=== PATIENT | male | born 1980 | race Caucasian/White ===

== ENCOUNTER 2018-08-19 12:30 | Emergency (ER) | payer MEDICAID ==
[~2018-08-19] VITALS: Ht 160 cm; Wt 63.5 kg
[2018-08-19 12:43] VITALS: BP_SYST 157
[2018-08-19] MEDS: MORPHINE 4 MG/ML INJ. SYRINGE IM ONE (16:33)
[2018-08-19 16:35] LABS: CALCIUM 8.9 mg/dL (8.4-11.0); CREATININE 0.78 mg/dL (0.55-1.30); POTASSIUM 4.3 mmol/L (3.5-5.1)
[2018-08-19 16:41] LABS: ALBUMIN 3.6 g/dL (3.4-4.8); TOTAL BILIRUBIN 0.6 mg/dL (0.0-1.0)
[2018-08-19 17:05] LABS: HEMATOCRIT 46.9 % (36-54); HEMOGLOBIN 16.2 g/dL (14.0-18.0); MEAN CORPUSCULAR HEMOGLOBIN 31 pg (27-31); MEAN CORPUSCULAR HGB CONC 35 % (32-36); MEAN CORPUSCULAR VOLUME 90 fL (79.0-98.0); PLATELET COUNT (AUTO) 237 K/uL (130-430); RED BLOOD CELL COUNT(AUTO) 5.21 MIL/uL (4.2-6.2); RED CELL DISTRIBUTION WIDTH 12.4 % (9.0-15.0); WHITE BLOOD COUNT (AUTO) 15.1 K/uL (4.8-10.8)
[2018-08-19 17:39] LABS: BAND % (MANUAL) 6 % (0-6); BASOPHILS % (MANUAL) 0 % (0-2); EOSINOPHILS % (MANUAL) 0 % (0-7); LYMPHOCYTES % (MANUAL) 10 % (20-46); MONOCYTES % (MANUAL) 3 % (0-11)
[2018-08-19] MEDS ORDERED: AMPICILLIN SODIUM/SULBACTAM NA 3 GM in NS 100 ML IV ONE (19:15)
[2018-08-19 19:50] VITALS: BP_SYST 137
== END 2018-08-19 19:50 | disposition home or self-care (01) ==
LOC: SED 12:30
DX: K80.20 Calculus of gallbladder without cholecystitis without obstruction (principal); R03.0 Elevated blood-pressure reading, without diagnosis of hypertension; Z85.830 Personal history of malignant neoplasm of bone
CPT/HCPCS: 36415; 71045; 74176; 80053; 83690; 85007; 85027; 96372; 99284; J2270

== ENCOUNTER 2018-09-02 21:20 | Inpatient (IN) | payer MEDICAID ==
[~2018-09-02] VITALS: Ht 160 cm; Wt 71.1 kg
[2018-09-02 21:25] VITALS: BP_SYST 159
--- NOTE | 2018-09-02 21:30 | NUR ---
Patient triaged and placed in waiting room. VSS and patient appears in no acute distress at this time. Accompanied by self , awaiting available bed, and MD notified of need for MSE.
[2018-09-02 23:34] LABS: HEMOGLOBIN 17.4 g/dL (14.0-18.0); MEAN CORPUSCULAR HEMOGLOBIN 31 pg (27-31); MEAN CORPUSCULAR HGB CONC 33 % (32-36); MEAN CORPUSCULAR VOLUME 93 fL (79.0-98.0); PLATELET COUNT (AUTO) 326 K/uL (130-430); RED BLOOD CELL COUNT(AUTO) 5.59 MIL/uL (4.2-6.2); RED CELL DISTRIBUTION WIDTH 12.2 % (9.0-15.0); WHITE BLOOD COUNT (AUTO) 15.7 K/uL (4.8-10.8)
[2018-09-02 23:40] LABS: BASOPHILS # (AUTO) 0.3 K/uL (0.0-0.2); BASOPHILS % (AUTO) 2.1 % (0.0-2.0); EOSINOPHILS % (AUTO) 0.3 % (0.0-4.0); LYMPHOCYTES # (AUTO) 1.3 K/uL (1.0-5.5); LYMPHOCYTES % (AUTO) 8.6 % (20.5-51.5); MONOCYTES # (AUTO) 0.5 K/uL (0.0-1.0); MONOCYTES % (AUTO) 3.2 % (1.7-9.3); NEUTROPHILS # (AUTO) 13.4 K/uL (1.8-7.7); NEUTROPHILS % (AUTO) 85.8 % (40.0-70.0)
[2018-09-02 23:51] LABS: CALCIUM 9.3 mg/dL (8.4-11.0); CREATININE 1.06 mg/dL (0.55-1.30); POTASSIUM 4.1 mmol/L (3.5-5.1); TOTAL BILIRUBIN 0.5 mg/dL (0.0-1.0)
[2018-09-02 23:56] LABS: INR 0.9 (0.80-1.20); PROTHROMBIN TIME 9.5 SECS (9.5-12.5)
--- NOTE | 2018-09-03 00:32 | NUR ---
Pt ambulatory to bed 4 for evaluation
--- NOTE | 2018-09-03 00:37 | NUR ---
Pt C/O abdominal pain x 2 weeks. Pt states he was in the ER for the complaints and was instructed to follow up with gall stone removal with PMD. Pt states PMD is on vaction and instructed if pain persists to go back to the ER. Pt states pain is located in the epigastric area and radiates to the left side. Pt states he vomited x 1 at 2000 last night but no nausea at this time. Pt's vital signs are stable, will continue to monitor.
--- NOTE | 2018-09-03 00:45 | NUR ---
ER Dr. Joshi at bedside examining patient.
[2018-09-03] MEDS ORDERED: ONDANSETRON HCL 4 MG/2 ML VIAL IVP ONE ×2 (01:30→18:00)
[2018-09-03] MEDS ORDERED: NACL 0.9% 1,000 ML IV ONE (01:30)
[2018-09-03] MEDS ORDERED: MORPHINE 4 MG/ML INJ. SYRINGE IVP ONE (01:30)
--- NOTE | 2018-09-03 02:08 | NUR ---
Patient transported to radiology via gurney, accompanied by rad staff.
[2018-09-03] MEDS ORDERED: IOHEXOL 100 ML IV ONE (02:19)
--- NOTE | 2018-09-03 03:00 | NUR ---
Pt is sleeping in bed, no acute distress noted at this time. Will continue to monitor
--- NOTE | 2018-09-03 04:16 | NUR ---
Pt is resting in bed, pt states abd pain is 1/10. Vital signs are stable at this time, will continue to monitor
--- NOTE | 2018-09-03 04:33 | NUR ---
Jonas armenta in [facility] - 09/03/18 at [email or web address] Joshi talked to insurance and PET Team will be discharged in the morning.
--- NOTE | 2018-09-03 05:07 | NUR ---
ADMISSION NOTE Received patient from ER via gurney. Patient admitted with diagnosis of Gallstones. Patient is awake, alert, oriented X 4. Patient oriented to hospital room, call light, toileting, pain management and safety-teach back done. Patient informed that ALESSANDRO Millan will be primary nurse and that their room number is 130B. Personal belongings checked and Belongings List documented. Call light within reach.
--- NOTE | 2018-09-03 05:15 | NUR ---
[facility] Ad[facility] surge unit. Will go to room 130B. Belongings list completed. Summary report printed. Report will be given at bedside.
[2018-09-03 05:22] VITALS: BP_SYST 124
[2018-09-03] MEDS ORDERED: D5NS 1,000 ML IV ONE (06:00)
--- NOTE | 2018-09-03 06:05 | NUR ---
CONSULT: CONSULT CALLED FOR DR. SANCHEZ I SPOKE WITH JOEY MORATAYA REASON FOR CONSULT: GALLSTONES REQUESTING CONSULT: DR. APPLE HIV PREVENTION SPECIALIST PHONE NUMBER: [phone] SANCHEZ CALLED ALREADY HE IS TALKING TO RN IN CHARGE OF THIS PT.
--- NOTE | 2018-09-03 06:10 | NUR ---
Spoke with Dr. Finch: Dr. Finch paged by community affairs director Cot[place] for ordered surgical consult. updated with patient's current condition and well as pertinent labs and imaging results. No orders received.
--- NOTE | 2018-09-03 06:35 | NUR ---
Closing note: Patient is awake in bed resting, no acute distress noted. IV fluids infusing well to right forearm IV site. No complaints of pain or nausea. All needs met. Will endorse care to dayshift RN.
--- NOTE | 2018-09-03 07:26 | NUR ---
OPENING NOTE: MORNING REPORT WAS TAKEN FROM ELECTRICAL CALIBRATOR NURSE AT BEDSIDE. PATIENT IS ASLEEP WITH NO SIGNS OF DISTRESS. PATIENT ON ROOM AIR. IV FLUIDS INFUSING. CALL LIGHT IS IN REACH AND BED IN LOWEST POSITION. WILL CONTINUE TO MONITOR.
[2018-09-03 08:23] VITALS: BP_SYST 123
[2018-09-03] MEDS ORDERED: cefTRIAXone 1 GM IVPB PREMIX 50 ML IV SCH (10:00)
--- NOTE | 2018-09-03 10:21 | NUR ---
NOTE: PATIENT LAYING IN BED WITH NO COMPLAINTS OF DISTRESS. GAVE PATIENT SCHEDULED ANTIBIOTICS. LET PATIENT KNOW DR ORDERED URINE SAMPLE. CUP AT BEDSIDE. WILL CONTINUE TO MONITOR.
[2018-09-03 10:30] LABS: HEMATOCRIT 43.2 % (36-54); HEMOGLOBIN 14.4 g/dL (14.0-18.0); MEAN CORPUSCULAR HEMOGLOBIN 31 pg (27-31); MEAN CORPUSCULAR HGB CONC 33 % (32-36); MEAN CORPUSCULAR VOLUME 92 fL (79.0-98.0); RED BLOOD CELL COUNT(AUTO) 4.68 MIL/uL (4.2-6.2); WHITE BLOOD COUNT (AUTO) 11.6 K/uL (4.8-10.8)
[2018-09-03 10:31] LABS: BASOPHILS # (AUTO) 0.4 K/uL (0.0-0.2); BASOPHILS % (AUTO) 3.8 % (0.0-2.0); EOSINOPHILS # (AUTO) 0.2 K/uL (0.0-0.4); EOSINOPHILS % (AUTO) 1.7 % (0.0-4.0); LYMPHOCYTES # (AUTO) 2.8 K/uL (1.0-5.5); LYMPHOCYTES % (AUTO) 23.9 % (20.5-51.5); MONOCYTES # (AUTO) 0.9 K/uL (0.0-1.0); MONOCYTES % (AUTO) 7.6 % (1.7-9.3); NEUTROPHILS # (AUTO) 7.3 K/uL (1.8-7.7); PLATELET COUNT (AUTO) 304 K/uL (130-430); RED CELL DISTRIBUTION WIDTH 12.1 % (9.0-15.0)
[2018-09-03 10:46] LABS: POTASSIUM 3.9 mmol/L (3.5-5.1)
[2018-09-03 10:47] LABS: CALCIUM 8.5 mg/dL (8.4-11.0); CREATININE 1.03 mg/dL (0.55-1.30)
[2018-09-03 10:57] LABS: TOTAL BILIRUBIN 0.6 mg/dL (0.0-1.0)
--- NOTE | 2018-09-03 12:24 | NUR ---
NOTE: PATIENT LAYING DOWN IN BED WITH NO SIGNS OF DISTRESS. GIRLFRIEND AT BEDSIDE. PATIENT HAS NOT VOIDED YET. WILL CONTINUE TO MONITOR.
[2018-09-03 12:52] VITALS: BP_SYST 116
--- NOTE | 2018-09-03 13:12 | NUR ---
NOTE: PATIENT IS AWAKE, ALERT, ORIENTED X3,AND RESTING ON BED, DENIES ANY PAIN OR DISCOMFORT.
[2018-09-03 15:27] LABS: CLARITY/URINE CLEAR (CLEAR); COLOR,URINE YELLOW (YELLOW); GLUCOSE,URINE NEGATIVE (NEGATIVE); KETONES,URINE NEGATIVE (NEGATIVE); PROTEIN URINE NEGATIVE (NEGATIVE)
[2018-09-03 15:28] LABS: BILIRUBIN,URINE NEGATIVE (NEGATIVE); BLOOD, URINE 3+ (NEGATIVE); LEUKOCYTE ESTERASE ,URINE NEGATIVE (NEGATIVE); NITRITE, URINE NEGATIVE (NEGATIVE); UROBILINOGEN,URINE 0.2 (0.2-1.0)
[2018-09-03 15:33] LABS: BACTERIA,URINE FEW /HPF (None Seen); RBC,URINE 20-50 /HPF (0-3)
--- NOTE | 2018-09-03 15:58 | NUR ---
DR JOANNE VILLAFANA FOR UROLOGIST CONSULT THAT DR SANCHEZ WANTS BEFORE SURGERY.
[2018-09-03 16:45] VITALS: BP_SYST 107
[2018-09-03] MEDS ORDERED: NS IRRIG SOLN 1000 ML IR ONE (18:00)
[2018-09-03] MEDS ORDERED: MIDAZOLAM HCL 5 MG/5 ML VIAL IVP ONE (18:00)
[2018-09-03] MEDS ORDERED: NS 1000 ML IV.SOLN IV ONE (18:00)
[2018-09-03] MEDS ORDERED: LR 1,000 ML IV.SOLN IV ONE (18:00)
[2018-09-03] MEDS ORDERED: GLYCOPYRROLATE 0.2 MG/ML VIAL IJ ONE (18:00)
[2018-09-03] MEDS ORDERED: ROCURONIUM BROMIDE 10 MG/ML (ZEMURON) IV ONE (18:00)
[2018-09-03] MEDS ORDERED: BUPIVACAINE /EPINEPHRINE/PF 0.5% 30 ML VIAL INJ ONE (18:00)
[2018-09-03] MEDS ORDERED: fentaNYL CITRATE 250 MCG/5 ML AMP IV ONE (18:00)
[2018-09-03] MEDS ORDERED: SEVOFLURANE 15 MIN GAS INH ONE (18:00)
[2018-09-03] MEDS ORDERED: NEOSTIGMINE METHYLSULFATE 1 MG/ML, 10 ML VIAL IVP ONE (18:00)
[2018-09-03] MEDS ORDERED: PROPOFOL 200MG/ 20ML VIAL (DIPRIVAN) IV ONE (18:00)
--- NOTE | 2018-09-03 18:00 | NUR ---
PATIENT LEFT TO SURGERY.
[2018-09-03] MEDS ORDERED: LR 1,000 ML IV SCH (18:50)
[2018-09-03] MEDS ORDERED: HYDROmorphone 2 MG/ML VIAL IVP PRN (19:00)
[2018-09-03] MEDS ORDERED: METOCLOPRAMIDE HCL 10 MG/2 ML VIAL IVP PRN (19:00)
[2018-09-03] MEDS ORDERED: HYDROmorphone 1 MG INJ. 1 MG/ML AMPUL IVP PRN ×2 (19:00)
--- NOTE | 2018-09-03 19:01 | NUR ---
PATIENT STILL IN OR. ENDORSED CARE TO NIGHT NURSE JOYCE.
[2018-09-03] MEDS: LR 1,000 ML IV SCH (19:45)
--- NOTE | 2018-09-03 20:15 | NUR ---
OPENING NOTES RECEIVED PATIENT FROM OR S/P LAP EUGENE. PATIENT AAO X4. BREATHING UNLABORED ON ROOM AIR. ABDOMINAL INCISIONS X4 DRESSING DRY AND INTACT. VITAL SIGNS STABLE. CALL LIGHT WITHIN REACH. BED ALARM ON. GIRLFRIEND AT BEDSIDE.
[2018-09-03] MEDS ORDERED: HYDROmorphone 1 MG INJ. 1 MG/ML AMPUL ONE (20:21)
[2018-09-03] MEDS: HYDROcodone/ACETAMIN 5-325 MG TAB (NORCO/ VICODIN) PO PRN (20:48)
--- NOTE | 2018-09-03 20:48 | NUR ---
PAIN MGT PATIENT MEDICATED WITH NORCO ORDERED FOR C/O UPPER ABDOMINAL PAIN 02/03. VITAL SIGNS STABLE.
[2018-09-03 21:29] VITALS: BP_SYST 136
[2018-09-03] MEDS ORDERED: CEFAZOLIN 2 GM IVPB PREMIX 50 ML IV ONE (21:45)
[2018-09-03] MEDS ORDERED: ceFAZolin SODIUM 2 GM in D5W 100 ML IV SCH (22:00)
[2018-09-03] MEDS: ceFAZolin SODIUM 2 GM in D5W 100 ML IV SCH (22:13)
--- NOTE | 2018-09-03 22:20 | NUR ---
ENDORSED PATIENT TOLERATING PO FLUIDS. DENIES NAUSEA. IVF INFUSING ORDERED WITH IV LINE PATENT. GIRLFRIEND AT BEDSIDE. PATIENT CARE ENDORSED TO RE FRNACOIS
--- NOTE | 2018-09-03 22:25 | NUR ---
[place] of care: Received report from ALESSANDRO Marcano. Patient is awake watching TV. Girlfriend at bedside. Denies pain, nausea, or shortness of breath. IV fluids infusing to patient's right AC, site is patent and benign. Incentive spirometer is with patient, education provided regarding use, patient verbalized understanding. Call light is with patient. Will continue to monitor.
[2018-09-03 23:35] VITALS: BP_SYST 129
--- NOTE | 2018-09-04 00:35 | NUR ---
Rounds: Patient is resting in bed, no acute distress noted. IV fluids infusing well to right AC IV site. Call light with patient. Will continue to monitor.
--- NOTE | 2018-09-04 02:23 | NUR ---
Rounds: Patient is sleeping comfortably in bed, does not show signs or symptoms of acute distress. breathing is even, unlabored on room air. Call light with patient. Will continue to monitor.
[2018-09-04] MEDS ORDERED: CEFAZOLIN 1 GM IVPB PREMIX 100 ML IV ONE (03:22)
--- NOTE | 2018-09-04 04:27 | NUR ---
Rounds: Patient is asleep. Does not show any acute distress. Girlfriend resting at bedside. IV fluids infusing well. Call light with patient. Will continue monitoring.
[2018-09-04] MEDS: LR 1,000 ML IV SCH ×2 (05:09→17:29)
[2018-09-04] MEDS: ceFAZolin SODIUM 2 GM in D5W 100 ML IV SCH ×3 (05:10→21:19)
--- NOTE | 2018-09-04 06:51 | NUR ---
Closing note: Patient resting comfortably in bed. No acute distress. Tolerating room air. Girlfriend is at bedside. IV fluids infusing well to right forearm IV site. All needs met. Will endorse care to dayshift RN.
--- NOTE | 2018-09-04 07:45 | NUR ---
Pt AAOx4, resting, c/o pain 04/05, will medicate per OCT. Dressing on his abdomen C/D/I. Plan of care discussed with the pt., verbalized understanding. Family member at bedside.
[2018-09-04 08:00] VITALS: BP_SYST 110
[2018-09-04] MEDS: HYDROcodone/ACETAMIN 5-325 MG TAB (NORCO/ VICODIN) PO PRN ×2 (08:16→17:29)
--- NOTE | 2018-09-04 10:14 | NUR ---
Nutrition Update Pranav Scale 18 noted. Pt admitted for gallstones. Diet: clear liquid BMI: 27.8 kg/m2 RD to follow per nutrition care standards.
[2018-09-04] MEDS: HYDROmorphone 1 MG INJ. 1 MG/ML AMPUL IVP PRN ×3 (11:56→23:18)
--- NOTE | 2018-09-04 12:10 | NUR ---
Case mgt: Met w/pt at bedside who says he's homeless and lives in his car. His parents are at bedside and agree that he can stay w/them while he recovers from surgery. Pt is independent w/ADLs, drives and has girlfriend to help him also. Urology consult pending and I encouraged pt to make f/u appointment today with his PCP Dr. Alvarez [place] in [place]. CÉSAR FRANCOIS
--- NOTE | 2018-09-04 12:30 | NUR ---
Pt sleeping at this time, Respiration even and unlabored. No discomfort noted.
[2018-09-04 12:42] VITALS: BP_SYST 116
[2018-09-04 17:16] VITALS: BP_SYST 111
[2018-09-04 20:00] VITALS: BP_SYST 116
--- NOTE | 2018-09-04 20:00 | NUR ---
Initial Notes Received patient resting in bed, awake, alert, oriented. Patient's termite treater helper girlfriend was found in patient's bed with patient, educated both patient and visitor that bed is for patient use only, both verbalized understanding and visitor complied with request to exit bed. Patient denies any acute distress or pain at this time. Vital signs stable. Breathing is even and unlabored. IV site patent/clean/dry. Needs addressed. Educated patient regarding use of call light for assistance and fall precautions, patient verbalized understanding. Call light in hand, fall precautions in place. Will continue to monitor.
--- NOTE | 2018-09-04 22:00 | NUR ---
Nursing Notes Patient resting in bed, awake, visitor at bedside. Patient denies any acute distress or pain at this time. Breathing is even and unlabored. IV site patent/clean/dry. Snacks given to patient per request. Needs addressed. Call light in hand, fall precautions in place.
[2018-09-04 23:51] VITALS: BP_SYST 130
--- NOTE | 2018-09-05 | NUR ---
Nursing Notes Patient resting in bed with eyes closed, easily aroused upon nurse entering room, visitor at bedside. Patient denies any acute distress or pain at this time. Breathing is even and unlabored. IV site patent/clean/dry. Needs addressed. Call light in hand, fall precautions in place.
--- NOTE | 2018-09-05 02:00 | NUR ---
Nursing Notes Patient resting in bed with eyes closed, visitor at bedside. No acute distress noted, breathing is even and unlabored. IV site patent/clean/dry. Fall precautions in place, will continue to monitor.
[2018-09-05] MEDS: LR 1,000 ML IV SCH (03:17)
[2018-09-05] MEDS: HYDROmorphone 1 MG INJ. 1 MG/ML AMPUL IVP PRN (03:23)
--- NOTE | 2018-09-05 04:00 | NUR ---
Nursing Notes Patient resting in bed, with eyes closed. Breathing is even and unlabored. IV site patent/clean/dry. Will continue to monitor.
[2018-09-05] MEDS: ceFAZolin SODIUM 2 GM in D5W 100 ML IV SCH ×2 (05:06→13:11)
--- NOTE | 2018-09-05 06:30 | NUR ---
Closing Notes Patient resting in bed with eyes closed, easily aroused, visitor at bedside. Patient denies any acute distress or pain at this time. Breathing is even and unlabored. IV site patent/clean/dry, no S/S infection/infiltration noted. Dressings remain clean/dry/intact. Needs addressed throughout shift. Call light in hand, fall precautions in place. Will continue to monitor for changes and safety, and endorse all patient care/needs to oncoming nurse.
[2018-09-05 08:00] VITALS: BP_SYST 123
--- NOTE | 2018-09-05 08:00 | NUR ---
Opening Note Report received from [place] shift nurse. Patient is s/p lap joe on 09/[address] Burks. Four abdominal incisions are covered with gauze dressing. Patient has active bowel sounds and is passing gas. IV is on the RAC 20g running LR@100. Call light is within reach and bed is in low position. Will continue to monitor.
[2018-09-05] MEDS: HYDROcodone/ACETAMIN 5-325 MG TAB (NORCO/ VICODIN) PO PRN ×2 (08:30→13:15)
[2018-09-05] MEDS ORDERED: TAMSULOSIN HCL 0.4 MG CAP PO SCH (09:00)
--- NOTE | 2018-09-05 10:30 | NUR ---
Rounds Patient is resting in bed. Call light is within reach.
--- NOTE | 2018-09-05 10:36 | NUR ---
Social Service Note: Pt referred to social worker psychiatric by watch case polisher and physician. PROJECT DEVELOPMENT MANAGER met with pt at bedside; pt states that he was hoping that PROJECT DEVELOPMENT MANAGER was connected with the DPSS office. PROJECT DEVELOPMENT MANAGER alerted pt that PROJECT DEVELOPMENT MANAGER is the licensed clinical social worker for the hospital. Pt states that he has paperwork to be turned in to the [place] [facility] office. PROJECT DEVELOPMENT MANAGER encouraged pt to contact the [facility] office and let them know that pt has been hospitalized. Pt states that he is homeless and has been staying in his car with his girlfriend. Pt states that they usually stay in the [place] area. Pt states that upon discharge he will be going to: [address] [place] [id number] to stay with his parents while he recovers. PROJECT DEVELOPMENT MANAGER spoke with pt about the homeless resources; pt states that he is aware of the cold weather and [place] [facility]. Pt states that things get stolen in the shelters and he and his girlfriend are . Pt states that they prefer to stay in their car. 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 PROJECT DEVELOPMENT MANAGER provided pt with homeless assistance resources, cold weather senior care information, and substance abuse treatment resources. Pt states that he and his girlfriend do have clothing; pt states that his mother brought him some new clothes. Pt states that he has attended [facility] for follow up. PROJECT DEVELOPMENT MANAGER will remain available for support and will follow up as needed.
[2018-09-05 12:13] VITALS: BP_SYST 132
--- NOTE | 2018-09-05 12:30 | NUR ---
Rounds Patient is resting in bed. Call light is within reach.
[2018-09-05 13:46] VITALS: BP_SYST 123
[2018-09-05] MEDS ORDERED: TAMS-11 PO (13:55)
--- NOTE | 2018-09-05 14:50 | NUR ---
Transition of Care Note All transition of care instructions and prescriptions were provided to the patient. He verbalized understanding of all. IV and ID band were both removed.
== END 2018-09-05 15:10 | disposition home or self-care (01) | DRG 263 ==
LOC: SED 21:20 → SMU 09-03 04:47
PROVIDERS: ADMIT Internal Medicine Hospice and Palliative Medicine; ATTEND Internal Medicine Hospice and Palliative Medicine
PROC: 0FT44ZZ Resection of Gallbladder, Percutaneous Endoscopic Approach (ICD-10-PCS; principal; 2018-09-03 18:00)
DX: K80.01 Calculus of gallbladder with acute cholecystitis with obstruction (principal); K66.0 Peritoneal adhesions (postprocedural) (postinfection); N23 Unspecified renal colic; Z85.830 Personal history of malignant neoplasm of bone
CPT/HCPCS: 36415; 76700-TC; 80053; 81000-TC; 83690-TC; 85025; 85610-TC; 87081; 88304; 94010; 96361; 96374; 96375; 99285; C1727; J0690; J0696; J1170; J2250; J2270; J2405; J2704; J2710; J3010; J3490; J7030; J7042; J7060; J7120; Q9967

== ENCOUNTER 2019-09-19 12:50 | Emergency (ER) | payer MEDICAID ==
[~2019-09-19] VITALS: Ht 160 cm; Wt 63.5 kg
[2019-09-19 12:50] VITALS: BP_SYST 150
[~2019-09-19 12:50] MED LIST: TAMS-11 PO
--- NOTE | 2019-09-19 12:50 | NUR ---
BROUGHT BACK TO BED #7 AND TRIAGED, REPORT GIVEN TO BABATUNDE
--- NOTE | 2019-09-19 13:00 | NUR ---
pt came to ER for cough and wheezing. Currently in bed on vault mechanic O2 sat WNL, resting, awaiting MD.
--- NOTE | 2019-09-19 13:10 | NUR ---
SANDHYA Hightower at bedside examining patient.
[2019-09-19] MEDS ORDERED: IPRATROPIUM/ALBUTEROL SULFATE 3 ML AMPUL.NEB (DUONEB) INH ONE (13:15)
--- NOTE | 2019-09-19 13:15 | NUR ---
EKG at bedside completed
--- NOTE | 2019-09-19 13:20 | NUR ---
Breathing treatment administered at bedside to pt
[2019-09-19 14:37] LABS: BASOPHILS # (AUTO) 0.1 K/uL (0.0-0.2); BASOPHILS % (AUTO) 0.4 % (0.0-2.0); EOSINOPHILS # (AUTO) 0.1 K/uL (0.0-0.4); EOSINOPHILS % (AUTO) 0.9 % (0.0-4.0); HEMATOCRIT 47.8 % (36-54); HEMOGLOBIN 15.7 g/dL (14.0-18.0); LYMPHOCYTES # (AUTO) 1.1 K/uL (1.0-5.5); LYMPHOCYTES % (AUTO) 7.7 % (20.5-51.5); MEAN CORPUSCULAR HEMOGLOBIN 31 pg (27-31); MEAN CORPUSCULAR HGB CONC 33 % (32-36); MEAN CORPUSCULAR VOLUME 96 fL (79.0-98.0); MONOCYTES # (AUTO) 0.7 K/uL (0.0-1.0); MONOCYTES % (AUTO) 4.6 % (1.7-9.3); NEUTROPHILS # (AUTO) 12.4 K/uL (1.8-7.7); NEUTROPHILS % (AUTO) 86.4 % (40.0-70.0); PLATELET COUNT (AUTO) 192 K/uL (130-430); RED CELL DISTRIBUTION WIDTH 13.7 % (9.0-15.0); WHITE BLOOD COUNT (AUTO) 14.4 K/uL (4.8-10.8)
--- NOTE | 2019-09-19 14:40 | NUR ---
Urine collected and sent to lab
[2019-09-19 14:48] LABS: CALCIUM 8.6 mg/dL (8.4-11.0); CREATININE 1.12 mg/dL (0.55-1.30)
[2019-09-19 14:55] LABS: ALBUMIN 3.7 g/dL (3.4-4.8)
[2019-09-19] MEDS ORDERED: AZITHROMYCIN 250 MG TABLET PO ONE (15:15)
[2019-09-19 15:19] LABS: BARBITURATE, URINE NEGATIVE (NEG <=200); BENZODIAZEPINE, URINE NEGATIVE (NEG <=150); CANNABINOID, URINE NEGATIVE (NEG <=50); COCAINE, URINE NEGATIVE (NEG <=150); METHAMPHETAMINES SCREEN,URINE POSITIVE (NEG <=500); OPIATE, URINE NEGATIVE (NEG <=100); PHENCYCLIDINE SCREEN,URINE NEGATIVE (NEG <=25); UR TRICYCLIC ANTIDEPRESSANTS NEGATIVE (NEG <=300); URINE AMPHETAMINE POSITIVE (NEG <=500); URINE METHADONE NEGATIVE (NEG <=200); URINE OXYCODONE SCREEN NEGATIVE (NEG <=100); URINE PROPOXYPHENE SCREEN NEGATIVE (NEG <=300)
[2019-09-19 15:46] VITALS: BP_SYST 107
--- NOTE | 2019-09-19 15:47 | NUR ---
Patient given written and verbal discharge instructions and verbalizes understanding. ER MD discussed with patient the results and treatment provided. Patient in stable condition. ID arm band removed. Rx of azithromycin given. Patient educated on pain management and to follow up with PMD. Pain Scale 0. Opportunity for questions provided and answered. Medication side effect fact sheet provided.
== END 2019-09-19 15:47 | disposition home or self-care (01) ==
LOC: SED 12:50
DX: R05 Cough (principal); R50.9 Fever, unspecified; R11.10 Vomiting, unspecified; F15.90 Other stimulant use, unspecified, uncomplicated; F17.210 Nicotine dependence, cigarettes, uncomplicated; Z71.6 Tobacco abuse counseling
CPT/HCPCS: 36415; 71046; 80053; 80307; 85025; 86710; 93005; 94640; 99284; J7620; Q0144

== ENCOUNTER 2019-11-12 13:23 | Emergency (ER) | payer MEDICAID ==
[~2019-11-12] VITALS: Ht 160 cm; Wt 70.3 kg
[2019-11-12 13:35] VITALS: BP_SYST 116
[2019-11-12 14:53] LABS: BASOPHILS # (AUTO) 0.1 K/uL (0.0-0.2); BASOPHILS % (AUTO) 0.7 % (0.0-2.0); EOSINOPHILS # (AUTO) 0.1 K/uL (0.0-0.4); EOSINOPHILS % (AUTO) 1.6 % (0.0-4.0); HEMATOCRIT 53.3 % (36-54); HEMOGLOBIN 17.2 g/dL (14.0-18.0); LYMPHOCYTES # (AUTO) 1.7 K/uL (1.0-5.5); LYMPHOCYTES % (AUTO) 22.4 % (20.5-51.5); MEAN CORPUSCULAR HEMOGLOBIN 31 pg (27-31); MEAN CORPUSCULAR HGB CONC 32 % (32-36); MEAN CORPUSCULAR VOLUME 97 fL (79.0-98.0); MONOCYTES # (AUTO) 0.4 K/uL (0.0-1.0); MONOCYTES % (AUTO) 5.9 % (1.7-9.3); NEUTROPHILS # (AUTO) 5.2 K/uL (1.8-7.7); NEUTROPHILS % (AUTO) 69.4 % (40.0-70.0); PLATELET COUNT (AUTO) 152 K/uL (130-430); RED BLOOD CELL COUNT(AUTO) 5.49 MIL/uL (4.2-6.2); RED CELL DISTRIBUTION WIDTH 14.6 % (9.0-15.0); WHITE BLOOD COUNT (AUTO) 7.4 K/uL (4.8-10.8)
[2019-11-12 15:07] LABS: CALCIUM 8.7 mg/dL (8.4-11.0); CREATININE 1.2 mg/dL (0.55-1.30); POTASSIUM 3.6 mmol/L (3.5-5.1)
[2019-11-12 15:12] LABS: ALBUMIN 3.5 g/dL (3.4-4.8); INR 1.1 (0.80-1.20); TOTAL BILIRUBIN 1.2 mg/dL (0.0-1.0)
[2019-11-12] MEDS ORDERED: FUROSEMIDE 20 MG TABLET PO ONE (16:45)
[2019-11-12 17:25] VITALS: BP_SYST 123
== END 2019-11-12 17:25 | disposition home or self-care (01) ==
LOC: SED 13:23
DX: I50.9 Heart failure, unspecified (principal); F17.290 Nicotine dependence, other tobacco product, uncomplicated; F11.90 Opioid use, unspecified, uncomplicated
CPT/HCPCS: 36415; 71045; 80053; 83605; 83880; 84484; 85025; 85610-TC; 85730-TC; 87040-TC; 93005; 99285

== ENCOUNTER 2019-12-30 16:17 | Emergency (ER) | payer MEDICAID ==
[~2019-12-30] VITALS: Ht 167.6 cm; Wt 77.1 kg
--- NOTE | 2019-12-30 16:18 | NUR ---
Patient triaged and placed in tent room. VSS and patient appears in no acute distress at this time and MD notified of need for MSE.
--- NOTE | 2019-12-30 16:19 | NUR ---
Pt c/o cough unable to get RX for PMD.
--- NOTE | 2019-12-30 16:20 | NUR ---
ER at bedside examining patient.
[2019-12-30 16:35] VITALS: BP_SYST 117
--- NOTE | 2019-12-30 16:35 | NUR ---
Patient given written and verbal discharge instructions and verbalizes understanding. ER MD discussed with patient the results and treatment provided. Patient in stable condition. ID arm band removed. Rx of promethazine given. Patient educated on pain management and to follow up with PMD. Pain Scale 0 Opportunity for questions provided and answered. Medication side effect fact sheet provided.
== END 2019-12-30 16:35 | disposition home or self-care (01) ==
LOC: SED 16:17
DX: J06.9 Acute upper respiratory infection, unspecified (principal); I50.9 Heart failure, unspecified; Z85.830 Personal history of malignant neoplasm of bone
CPT/HCPCS: 99283

== ENCOUNTER 2020-01-11 21:39 | Emergency (ER) | payer MEDICAID ==
[~2020-01-11] VITALS: Ht 160 cm; Wt 68.0 kg
--- NOTE | 2020-01-11 21:39 | NUR ---
BROUGHT BACK TO BED #1 AND TRIAGED. REPORT GIVEN TO NAVJOT
[2020-01-11 21:40] VITALS: BP_SYST 120
--- NOTE | 2020-01-11 21:50 | NUR ---
ER Dr. Burnett at bedside examining patient.
--- NOTE | 2020-01-11 22:24 | NUR ---
Pt in bed,no distress noted. o2sat 99-100% on room air. No sob, no cough noted.
[2020-01-11] MEDS ORDERED: FUROSEMIDE 40 MG/4 ML VIAL IVP ONE (22:45)
[2020-01-11] MEDS ORDERED: AZITHROMYCIN 250 MG TABLET PO ONE (22:45)
[2020-01-11 22:56] LABS: BASOPHILS # (AUTO) 0.1 K/uL (0.0-0.2); BASOPHILS % (AUTO) 0.7 % (0.0-2.0); EOSINOPHILS # (AUTO) 0.1 K/uL (0.0-0.4); EOSINOPHILS % (AUTO) 1.4 % (0.0-4.0); HEMATOCRIT 50.4 % (36-54); HEMOGLOBIN 16.7 g/dL (14.0-18.0); LYMPHOCYTES # (AUTO) 1.9 K/uL (1.0-5.5); LYMPHOCYTES % (AUTO) 20.7 % (20.5-51.5); MEAN CORPUSCULAR HEMOGLOBIN 31 pg (27-31); MEAN CORPUSCULAR HGB CONC 33 % (32-36); MEAN CORPUSCULAR VOLUME 94 fL (79.0-98.0); MONOCYTES # (AUTO) 0.6 K/uL (0.0-1.0); MONOCYTES % (AUTO) 7.1 % (1.7-9.3); NEUTROPHILS # (AUTO) 6.4 K/uL (1.8-7.7); NEUTROPHILS % (AUTO) 70.1 % (40.0-70.0); PLATELET COUNT (AUTO) 184 K/uL (130-430); RED BLOOD CELL COUNT(AUTO) 5.38 MIL/uL (4.2-6.2); RED CELL DISTRIBUTION WIDTH 14.1 % (9.0-15.0); WHITE BLOOD COUNT (AUTO) 9.2 K/uL (4.8-10.8)
[2020-01-11 23:12] LABS: BILIRUBIN,URINE NEGATIVE (NEGATIVE); BLOOD, URINE NEGATIVE (NEGATIVE); CLARITY/URINE CLEAR (CLEAR); COLOR,URINE YELLOW (YELLOW); GLUCOSE,URINE NEGATIVE (NEGATIVE); KETONES,URINE NEGATIVE (NEGATIVE); LEUKOCYTE ESTERASE ,URINE NEGATIVE (NEGATIVE); NITRITE, URINE NEGATIVE (NEGATIVE); PH,URINE 5.5 (5.0-8.0); PROTEIN URINE NEGATIVE (NEGATIVE)
[2020-01-11 23:28] LABS: BARBITURATE, URINE NEGATIVE (NEG <=200); BENZODIAZEPINE, URINE NEGATIVE (NEG <=150); CANNABINOID, URINE NEGATIVE (NEG <=50); COCAINE, URINE NEGATIVE (NEG <=150); METHAMPHETAMINES SCREEN,URINE POSITIVE (NEG <=500); OPIATE, URINE NEGATIVE (NEG <=100); PHENCYCLIDINE SCREEN,URINE NEGATIVE (NEG <=25); UR TRICYCLIC ANTIDEPRESSANTS NEGATIVE (NEG <=300); URINE AMPHETAMINE POSITIVE (NEG <=500); URINE METHADONE NEGATIVE (NEG <=200); URINE OXYCODONE SCREEN NEGATIVE (NEG <=100); URINE PROPOXYPHENE SCREEN NEGATIVE (NEG <=300)
[2020-01-11 23:29] LABS: SODIUM SERUM 139 mmol/L (136-145)
[2020-01-11 23:30] LABS: ANION GAP 12 (5-15); CALCIUM 8.7 mg/dL (8.4-11.0); CHLORIDE 101 mmol/L (98-107); CREATININE 1.23 mg/dL (0.55-1.30); GFR AFRICAN AMERICAN 84 mL/min (>90); GLUCOSE 103 mg/dL (70-99); POTASSIUM 3.5 mmol/L (3.5-5.1); UREA NITROGEN, BLOOD 20 mg/dL (8-21)
[2020-01-11 23:31] LABS: ALANINE AMINOTRANSFERASE 41 U/L (12-78); ALBUMIN 3.8 g/dL (3.4-4.8); ALCOHOL, BLOOD < 3 mg/dL (<10); ASPARTATE AMINOTRANSFERASE 32 U/L (10-37); TOTAL BILIRUBIN 1.1 mg/dL (0.0-1.0)
[2020-01-11 23:45] VITALS: BP_SYST 117
--- NOTE | 2020-01-11 23:45 | NUR ---
Patient given written and verbal discharge instructions and verbalizes understanding. ER MD DR. Burnett discussed with patient the results and treatment provided. Patient in stable condition. Pt Refused to be admitted and understood risks. Discussed with MD. ID arm band removed. IV catheter removed intact and dressing applied, no active bleeding. Rx of Lasix given. Patient educated on pain management and to follow up with PMD. Pain Scale 0/10. Opportunity for questions provided and answered. Medication side effect fact sheet provided.
== END 2020-01-11 23:45 | disposition home or self-care (01) ==
LOC: SED 21:39
DX: I50.9 Heart failure, unspecified (principal); F15.10 Other stimulant abuse, uncomplicated; R05 Cough
CPT/HCPCS: 36415; 71045; 80053; 80307; 81003; 83880; 84484; 85025; 93005; 96374; 99285; G0482; J1940; Q0144

== ENCOUNTER 2020-08-24 18:15 | Emergency (ER) | payer MEDICAID ==
[~2020-08-24] VITALS: Ht 160 cm; Wt 65.8 kg
[2020-08-24 18:28] VITALS: BP_SYST 120
[2020-08-24 20:54] VITALS: BP_SYST 132
== END 2020-08-24 20:54 | disposition home or self-care (01) ==
LOC: SED 18:15
DX: R10.31 Right lower quadrant pain (principal); F17.200 Nicotine dependence, unspecified, uncomplicated
CPT/HCPCS: 99281

== ENCOUNTER 2020-11-10 14:02 | Emergency (ER) | payer MEDICAID ==
[~2020-11-10] VITALS: Ht 160 cm; Wt 65.8 kg
[2020-11-10 14:06] VITALS: BP_SYST 132
--- NOTE | 2020-11-10 14:09 | NUR ---
Patient to ER bed 04 to gown for evaluation. Side rails up.
--- NOTE | 2020-11-10 14:10 | NUR ---
PT CAME IN WITH LEFT KNEE PAIN AND TRIPPING AND FALLING PRIOR TO ARRIVAL. PT IS AAOX4, V/S STABLE
--- NOTE | 2020-11-10 14:18 | NUR ---
ER at bedside examining patient.
--- NOTE | 2020-11-10 14:25 | NUR ---
PORTABLE X-RAY AT THE BEDSIDE
[2020-11-10] MEDS ORDERED: KETOROLAC TROMETHAMINE 60 MG/2 ML VIAL IM ONE (15:15)
--- NOTE | 2020-11-10 15:18 | NUR ---
EDUARD WRAP APPLIED TO LEFT KNEE.
[2020-11-10] MEDS ORDERED: IBUP800T54 PO (15:19)
[2020-11-10 15:29] VITALS: BP_SYST 132
--- NOTE | 2020-11-10 15:31 | NUR ---
Patient given written and verbal discharge instructions and verbalizes understanding. ER MD discussed with patient the results and treatment provided. Patient in stable condition. ID arm band removed. Rx of IBUPROFEN given. Patient educated on pain management and to follow up with PMD. Pain Scale 0/10. Opportunity for questions provided and answered. Medication side effect fact sheet provided.
== END 2020-11-10 15:31 | disposition home or self-care (01) ==
LOC: SED 14:02
DX: S83.92XA Sprain of unspecified site of left knee, initial encounter (principal); W01.0XXA Fall on same level from slipping, tripping and stumbling without subsequent striking against object, initial encounter; Y93.89 Activity, other specified; Y92.89 Other specified places as the place of occurrence of the external cause; Y99.8 Other external cause status
CPT/HCPCS: 73564; 96372; 99283; J1885

== ENCOUNTER 2020-12-24 13:57 | Emergency (ER) | payer MEDICAID ==
[~2020-12-24] VITALS: Ht 160 cm; Wt 68.0 kg
[~2020-12-24 13:57] MED LIST changes: +IBUP800T54 PO
[2020-12-24 14:08] VITALS: BP_SYST 111
--- NOTE | 2020-12-24 14:08 | NUR ---
Patient to ER bed 4 to gown for evaluation. Side rails up. Report given to Jacky FRANCOIS.
--- NOTE | 2020-12-24 14:20 | NUR ---
DR CASSIDY IN TO ASSESS
--- NOTE | 2020-12-24 14:28 | NUR ---
RECEIVED AND IN ROOM, HERE FOR ABD PAIN RUQ AND HAS HX OF RECENT LAPCHOLE 1 YEAR AGO. VOMITING X 2. CALM, ALERT, RESP UNLABORED, SKIN WARM AND DRY
[2020-12-24] MEDS: KETOROLAC TROMETHAMINE 30 MG VIAL IVP ONE (14:41)
[2020-12-24 15:01] LABS: BASOPHILS # (AUTO) 0.3 K/uL (0.0-0.2); BASOPHILS % (AUTO) 2.1 % (0.0-2.0); EOSINOPHILS # (AUTO) 0.1 K/uL (0.0-0.4); EOSINOPHILS % (AUTO) 0.9 % (0.0-4.0); HEMATOCRIT 53.4 % (36-54); HEMOGLOBIN 18.2 g/dL (14.0-18.0); LYMPHOCYTES # (AUTO) 1.6 K/uL (1.0-5.5); LYMPHOCYTES % (AUTO) 10.6 % (20.5-51.5); MEAN CORPUSCULAR HEMOGLOBIN 31 pg (27-31); MEAN CORPUSCULAR HGB CONC 34 % (32-36); MEAN CORPUSCULAR VOLUME 92 fL (79.0-98.0); MONOCYTES # (AUTO) 1.2 K/uL (0.0-1.0); MONOCYTES % (AUTO) 7.9 % (1.7-9.3); NEUTROPHILS # (AUTO) 11.8 K/uL (1.8-7.7); NEUTROPHILS % (AUTO) 78.5 % (40.0-70.0); PLATELET COUNT (AUTO) 241 K/uL (130-430); RED BLOOD CELL COUNT(AUTO) 5.83 MIL/uL (4.2-6.2); RED CELL DISTRIBUTION WIDTH 13.5 % (9.0-15.0); WHITE BLOOD COUNT (AUTO) 15.1 K/uL (4.8-10.8)
[2020-12-24 15:03] LABS: CALCIUM 9.3 mg/dL (8.4-11.0); CREATININE 1.13 mg/dL (0.55-1.30); POTASSIUM 3.7 mmol/L (3.5-5.1)
--- NOTE | 2020-12-24 15:04 | NUR ---
BACK FROM CT. LABS, MEDICATED AND COMPLETED
[2020-12-24 15:09] LABS: ALBUMIN 3.6 g/dL (3.4-4.8); TOTAL BILIRUBIN 1.5 mg/dL (0.0-1.0)
[2020-12-24] MEDS ORDERED: ONDA4TAB5 PO (16:22)
[2020-12-24] MEDS ORDERED: IBUP-1969 PO (16:22)
[2020-12-24 16:32] VITALS: BP_SYST 111
--- NOTE | 2020-12-24 16:32 | NUR ---
Patient given written and verbal discharge instructions and verbalizes understanding. ER MD discussed with patient the results and treatment provided. Patient in stable condition. ID arm band removed. Rx of ibuprofen and ondansetron given. Patient educated on pain management and to follow up with PMD. Pain Scale 0/10 Opportunity for questions provided and answered. Medication side effect fact sheet provided.
== END 2020-12-24 16:32 | disposition home or self-care (01) ==
LOC: SED 13:57
DX: R10.31 Right lower quadrant pain (principal); R11.2 Nausea with vomiting, unspecified; I50.9 Heart failure, unspecified
CPT/HCPCS: 36415; 74176; 76376; 80053; 83690; 85025; 96374; 99284; J1885

== ENCOUNTER 2021-05-11 15:19 | Emergency (ER) | payer MEDICAID ==
[~2021-05-11] VITALS: Ht 160 cm; Wt 65.8 kg
[2021-05-11 15:19] VITALS: BP_SYST 136
[~2021-05-11 15:19] MED LIST changes: +IBUP-1969 PO; +ONDA4TAB5 PO
--- NOTE | 2021-05-11 15:19 | NUR ---
BROUGHT BACK TO BED #4 AND TRIAGED. REPORT GIVEN TO PAO
--- NOTE | 2021-05-11 15:45 | NUR ---
ER DR. RAWLS AT THE BEDSIDE EXAMINING PT
[2021-05-11] MEDS ORDERED: KETOROLAC TROMETHAMINE 60 MG/2 ML VIAL IM ONE (16:00)
--- NOTE | 2021-05-11 16:11 | NUR ---
PT CAME INTO ER C/O CHRONIC LOWER BACK PAIN, OTC MEDS NOT HELPING. PT IS AMBULATORY, AAOX4, V/S STABLE
--- NOTE | 2021-05-11 17:30 | NUR ---
Patient resting quietly. No acute distress noted. Vital signs within normal range.
--- NOTE | 2021-05-11 17:30 | NUR ---
Note kathi in [facility] - 05/11/21 at 1913 by MATHEUS Patient resting quietly. No acute distress noted. Vital signs within normal range.
[2021-05-11] MEDS ORDERED: CYCL10TA24 PO (18:21)
[2021-05-11] MEDS ORDERED: NAPR-1172 PO (18:21)
--- NOTE | 2021-05-11 19:10 | NUR ---
Jonas armenta in [facility] - 05/11/21 at 1913 by MATHEUS REPORT GIVEN TO ALESSANDRO MATA FOR CONTINUING CARE
--- NOTE | 2021-05-11 19:10 | NUR ---
REPORT GIVEN TO ALESSANDRO MATA FOR CONTINUING CARE
--- NOTE | 2021-05-11 19:15 | NUR ---
Patient given written and verbal discharge instructions and verbalizes understanding. ER MD discussed with patient the results and treatment provided. Patient in stable condition. ID arm band removed. Rx of naproxen, flexiril given. Patient educated on pain management and to follow up with PMD. Pain Scale 1/10. Opportunity for questions provided and answered. Medication side effect fact sheet provided.
[2021-05-11 19:17] VITALS: BP_SYST 136
== END 2021-05-11 19:17 | disposition home or self-care (01) ==
LOC: SED 15:19
DX: M54.5 Low back pain (principal); I50.9 Heart failure, unspecified; Z79.899 Other long term (current) drug therapy
CPT/HCPCS: 72128; 72131; 76376; 96372; 99285; J1885